=== PATIENT | male | born 1960 | race Caucasian/White ===

== ENCOUNTER 2018-12-16 12:42 | Inpatient (IN) | payer MEDICARE ==
[~2018-12-16] VITALS: Ht 167.6 cm; Wt 106.6 kg
[2018-12-16] VITALS (7 sets, daily range): BP systolic 118–174; BP diastolic 73–89; BMI 38.0
--- NOTE | ~2018-12-16 | OP ---
PATIENT NAME: CHRISTIN PARKER MEDICAL RECORD: [id number] :58 LOCATION:D.M2 D.2116 ADMISSION DATE:12/16/18 SURGEON: GOSIA BOOTHE MD DATE OF OPERATION: 12/16/2018 PROCEDURES: 1. PTCA and stent, LAD diagonal. 2. PTCA and stent, LAD. 3. Left heart catheterization. 4. Selective coronary angiography. 5. Left ventriculogram. INDICATION: Non-Q-wave myocardial infarction. PROCEDURE IN DETAIL: After informed consent was obtained with detailed description of risks and benefits as well as alternative therapies, the patient elected to proceed with angiogram and angioplasty. The right radial area was prepped and draped in normal sterile fashion. The right radial artery was cannulated via modified Seldinger technique with placement of 6-Sami sheath. All catheters were exchanged through this sheath. FINDINGS: Left ventriculogram performed in standard 30-degree GUAMAN view reveals good cardiac wall motion. Ejection fraction 60%. SELECTIVE CORONARY ANGIOGRAPHY: 1. Left main is with no significant angiographic disease. 2. Left anterior descending and diagonal are both 95% stenosed. 3. Left circumflex has moderate irregularities, but no flow-limiting stenosis. 4. Right coronary artery has 90% to 95% stenosis in the mid vessel. PTCA AND STENT OF LAD AND DIAGONAL: The LAD was addressed with a 3.0 x 22 mm [place] and the diagonal with a 2.5 x 12 mm Dir[place]. Result was 0% residual stenosis. OVERALL IMPRESSION: Successful PTCA and stent of the LAD and diagonal, going from 95% initial stenoses to 0% residual. TRANSINT:[id number] Voice Confirmation ID: [id number] DOCUMENT ID: [id number] GOSIA BOOTHE MD CC: [id number] DICTATION DATE: 12/16/18 1607 SCIENCE TECHNICIAN: 12/16/182024 ADM IN [facility] [address] [id number]
--- NOTE | ~2018-12-16 | HP ---
PATIENT: CHRISTIN PARKER MEDICAL RECORD: [id number] ACCOUNT: [id number] LOCATION:[place] : 58 ADMISSION DATE: 12/16/18 PCP: EDD CATALAN MD HISTORY AND PHYSICAL EXAMINATION DIAGNOSES: 1. Non-Q-wave myocardial infarction. 2. Coronary artery disease. 3. Hypertension. 4. Hyperlipidemia. 5. Diabetes. HISTORY OF PRESENT ILLNESS: Mr. Parker has had 2 days of on and off chest discomfort, got worse today and came to the ER. He has elevated troponin compatible with non-Q-wave myocardial infarction. He continues to have chest discomfort. PHYSICAL EXAMINATION: GENERAL APPEARANCE: Well-nourished, well-developed, appears stated age. Level of distress, comfortable. PSYCHIATRIC: Mental status, alert, normal affect. Orientation, oriented to time, place and person. EYES: Lids and conjunctiva, noninjected. No discharge, no pallor. ENT: Lips, teeth, gums, normal dentition. Oropharynx, no cyanosis, no pallor. NECK: Carotid arteries, bilateral normal upstroke, no bruits, no thrills. JUGULAR VEINS: No jugular venous pressure or distention. CERVICAL LYMPH NODES: Nontender, nonenlarged. THYROID: Not enlarged. Nontender. No nodules. LUNGS: Respiratory effort, unlabored. CHEST: Normal curvature. No thoracic deformity. No chest wall tenderness. Percussion, resonant. Auscultation, clear. No wheezes, no rales, no rhonchi. CARDIOVASCULAR: Precordial exam, nondisplaced. No heaves or pericardial thrills. Rate and rhythm, regular. Heart sounds, normal S1, normal S2. No S3, no gallop, no rub. Systolic murmur, not heard. Diastolic murmur, not heard. EXTREMITIES: No cyanosis, no edema. Peripheral pulses, full and equal in all extremities, except as noted. No bruits appreciated. ABDOMEN: Soft, nondistended. Normal aorta. No bruit. Nontender. No masses. Liver, nontender, no hepatomegaly. Spleen, nontender, no splenomegaly. MUSCULOSKELETAL: No joint tenderness. No joint swelling. No erythema. NEUROLOGICAL: Normal gait, normal strength, normal tone. SKIN: Warm and dry. OVERALL IMPRESSION: Non-Q-wave myocardial infarction with continued pain. We will proceed with coronary angiography. Further care depends upon findings of the angiography. TRANSINT:[id number] Voice Confirmation ID: [id number] DOCUMENT ID: [id number] HISTORY AND PHYSICAL [id number] CHRISTIN PARKER JEFFREY MD CC: [id number] DICTATION DATE: 12/16/18 1606 SOFTWOOD FALLER: 12/16/18 1617 [facility] [address] [id number]
--- NOTE | ~2018-12-16 | HEMODYNAMI ---
PATIENT:CHRISTIN PARKER MEDICAL RECORD: [id number] : 58 LOCATION:[place] ADMISSION DATE: 12/16/18 Generatedon:12/16/201816:09 Patient name: CHRISTIN PARKER Patient #: [id number] SSN: : 1960 Date of study: 12/16/2018 Page: Of Hemodynamic Procedure Report Patient Data Patient Demographics Procedure consent was obtained First Name: CHRISTIN Gender: Male Last Name: ELENA : 1960 Patient #: [id number] Age: 58 year(s) Race: Additional ID: [id number] Contact details [address]: [address] [place] [address] [place] State: [place] City: [place] Zip code: [address] Past Medical History Allergies Allergen Reaction Date Comments Reported Codeine 12/16/2018 Penicillins 12/16/2018 Admission Admission Data Admission Date: 12/16/2018 Admission Time: 12:42 Procedure Procedure Types Cath Procedure Diagnostic Procedure LHC LH w/Coronaries PCI Procedure Coronary Stent Coronary Stent Initial Coronary Stent Additional Procedure Description Procedure Date Procedure Date: 12/16/2018 Procedure Start Time: 15:48 Procedure End Time: 16:07 Procedure Staff Name Function Alfredito Gallo MD Performing Physician Cr Moran RT Monitor Michell Quinonez RN Nurse Shalom Selby RT Scrub Procedure Data Cath Procedure Fluoroscopy Diagnostic fluoroscopy Total fluoroscopy Time: 6.4 time: 6.4 min min Diagnostic fluoroscopy Total fluoroscopy dose: 877 dose: 877 mGy mGy Contrast Material Contrast Material Type Amount (ml) Isovue 300 132 Entry Location Entry Primary Successful Side Size Upsize Upsize Entry Closure Alonso ccessful Closure Location (Fr) 1 (Fr) 2 (Fr) Remarks Device Remarks Radial Right 6 Fr Mechanical artery Short Compression Estimated blood loss: 10 ml Diagnostic catheters Device Type Used For End Catheter Placement DIAGNOSTIC [place] 110cm 5 Procedure Fr catheter ([id number]) Procedure Medications Medication Administration Route Dosage Oxygen etCO2 Nasal cannula 2 l/min Lidocaine 2% added to field 20 Heparin Flush Bag added to field 2 bags (1000units/500ml NS) 0.9% NaCl I.V. 100 ml/hr Radial Cocktail I.A. 1 syringe (Verapamil 2mg/Nitro 400mcg/Heparin 1500units) Versed I.V. 2 mg Fentanyl I.V. 100 mcg Heparin Bolus I.V. 4000 units Integrilin (Bolus I.V. 9.5 ml 2mg/ml) Versed I.V. 2 mg Hemodynamics Rest Heart Rate: 60 (bpm) Snapshots Pre Cath Intra NCS Post Cath Vital Signs Time Heart Resp SPO2 etCO2 NIBP (mmHg) Rhythm Pain Sedation Rate (ipm) (%) (mmHg) Status Level (bpm) 15:43:40 72 13 96 35.2 136/83(116) NSR 0 (11) 10(A) , No pain 15:47:48 76 14 94 29.2 130/85(110) NSR 0 (11) 10(A) , No pain 15:51:56 82 15 95 35.2 136/79(113) NSR 0 (11) 9(A) , No pain 15:56:04 80 15 96 26.2 133/78(103) NSR 0 (11) 9(A) , No pain 16:00:14 82 16 96 32.9 135/75(106) NSR 0 (11) 9(A) , No pain 16:04:22 82 16 98 31.4 134/82(105) NSR 0 (11) 10(A) , No pain Medications Time Medication Route Dose Verified Delivered Reason Not es Effectiveness by by 15:42:06 Oxygen etCO2 2 l/min Alfredito Galarza used for Nasal Cleo Quinonez RN procedure cannula 15:42:13 Lidocaine 2% added 20ml Alfredito Glaser for local to vial Cleo Gallo MD anesthetic field 15:42:20 Heparin Flush added 2 bags Alfredito Glaser used for Bag to Cleo Gallo MD procedure (1000units/500ml field NS) 15:42:28 0.9% NaCl I.V. 100 Alfreditosanta Jamesie Per physician ml/hr Cleo Quinonez RN 15:42:42 Radial Cocktail I.A. 1 Alfredito Glaser for (Verapamil syringe Cleo Gallo MD vasodilation 2mg/Nitro 400mcg/Heparin 1500units) 15:47:54 Versed I.V. 2 mg Alfredito Galarza for sedation Cleo Quinonez RN 15:48:02 Fentanyl I.V. 100 mcg Alfredito Galarza for sedation Cleo Quinonez RN 15:52:58 Heparin Bolus I.V. 4000 Alfredito Galarza for germain ified units Cleo Quinonez RN anticoagulation with dr gallo 15:53:37 Integrilin I.V. 9.5 ml Alfredito Galarza for was marko (Bolus 2mg/ml) Cleo Quinonez RN antiplatelet 0.5 ml therapy of vial 15:58:18 Versed I.V. 2 mg Alfredito Galarza for sedation Cleo Quinonez RN Procedure Log Time Note 15:15:43 Informed consent obtained and on chart 15:16:10 Diagnostic Cath Status : Emergency 15:18:44 Michell Quinonez RN sent for patient. Start room use. 15:18:46 Time tracking: Call back (After hours or weekends) 15:19:04 Plan of Care:Hemodynamics will remain stable., Cardiac rhythm will remain stable., Comfort level will be maintained., Respiratory function will remain adequate., Patient/ family verbilizes understanding of procedure., Procedure tolerated without complication., Recovers from procedure without complications.. 15:28:14 Patient received from ED to CCL 1 Alert and oriented. Tansferred to table in Supine position. 15:28:15 Warm blankets applied, and margi hugger turned on for patient comfort. 15:28:16 Correct patient and procedure confirmed by team. 15:28:16 ECG and BP/O2 sat monitors applied to patient. 15:28:17 Pre-procedure instructions explained to patient. 15:28:18 Pre-op teaching completed and patient verbalized understanding. 15:42:06 Oxygen 2 l/min etCO2 Nasal cannula was administered by Michell Quinonez RN; used for procedure; 15:42:13 Lidocaine 2% 20ml vial added to field was administered by Alfredito Gallo MD; for local anesthetic; 15:42:20 Heparin Flush Bag (1000units/500ml NS) 2 bags added to field was administered by Alfredito Gallo MD; used for procedure; 15:42:28 0.9% NaCl 100 ml/hr I.V. was administered by Michell Quinonez RN; Per physician; 15:42:31 Vital chart was started 15:42:42 Radial Cocktail (Verapamil 2mg/Nitro 400mcg/Heparin 1500units) 1 syringe I.A. was administered by Alfredito Gallo MD; for vasodilation; 15:43:39 Baseline sample Acquired. 15:43:44 Rhythm: sinus rhythm 15:43:47 Full Disclosure recording started 15:43:56 H&P Date Dictated: 12/16/2018 ER History on chart.. 15:44:00 Family in waiting room. 15:44:17 Patient NPO since Breakfast. 15:44:24 Patient allergic to Codeine 15:44:30 Patient allergic to Penicillins 15:44:43 Is patient on blood thinner?No 15:45:00 PRE LOADED WITH 600 IN THE ER 15:45:06 Patient diabetic? Yes. 15:45:08 If diabetic: On Metformin? Yes 15:45:12 If on Metformin: Last Dose? 12/16/2018 15:45:35 TOLD TO HOLD NEXT TWO DAYS 15:45:46 ----Pre-sedation anethsthesia assessment.---- 15:45:49 Previous problem with sedation/anesthesia? No ? 15:45:52 Snore? Yes 15:45:53 Sleep apnea? No 15:45:55 Deviated septum? No 15:45:56 Opens mouth fully? Yes 15:45:57 Sticks out tongue? Yes 15:46:01 Airway obstruction? No ? 15:46:04 Dentures? No ? 15:46:19 Pre procedure: right dorsailis pedis pulse 2+ Normal; easily identifiable; not easily obliterated 15:46:26 Patient pain scale 3/10 ?. 15:46:40 IV patent on arrival in left antecubital with 0.9% NaCl at [facility]. 15:47:00 Right Radial & Right Groin area was prepped with chlora-prep and draped in sterile fashion 15:47:02 Alarms reviewed by R. N. 15:47:02 Sharps counted by scrub and verified by R.N. 15:47:07 Physician arrived 15:47:07 --------ALL STOP TIME OUT------ 15:47:08 Final Timeout: patient, procedure, and site verified with staff and physician. All members of the team are in agreement. 15:47:11 Right Radial & Right Groin site verified by team. 15:47:17 Maximum allowable Isovue 300 dose 300ml. Physician notified. (300ml for normal creatinines. For patients with creatinine of 1.7 or higher multiply weight(kg) x 5 divided by creatinine.) 15:47:22 Fire Safety Assessment: A--An alcohol-based skin anteseptic being used preoperatively., C--Open oxygen or nitrous oxide is being used., D--An ESU, laser, or fiber-optic light is being used. 15:47:27 Physical assessment completed. ASA score P 2 - A patient with mild systemic disease as per Alfredito Gallo MD. 15:47:33 Sedation plan: IV Moderate Sedation Medication:Versed, Fentanyl 15:47:39 Use device set Radial Dx or PCI 15:47:40 ACIST Syringe (66608) opened to sterile field. 15:47:41 Medline Cath Pack ([id number]) opened to sterile field. 15:47:42 Bag Decanter (2002) opened to sterile field. 15:47:42 DIAGNOSTIC WIRE .035 260cm J wire (234541) opened to sterile field. 15:47:43 ACIST Hand Control (74575) opened to sterile field. 15:47:44 ACIST Manifold (42089) opened to sterile field. 15:47:45 Tegaderm 4 x 4 (1626W) opened to sterile field. 15:47:48 MBrace Wrist Support ([id number]) opened to sterile field. 15:47:54 Versed 2 mg I.V. was administered by Michell Quinonez RN; for sedation; 15:48:02 Fentanyl 100 mcg I.V. was administered by Michell Quinonez RN; for sedation; 15:48:05 TR BAND Large (MUT69NAW) opened to sterile field. 15:48:08 SHEATH 6FR Slender (01-9810) opened to sterile field. 15:48:15 Procedure started. 15:48:21 Local anesthetic to right radial artery with Lidocaine 2% by Alfredito Gallo MD.INITIAL ACCESS ONLY 15:48:37 A 6 Fr Short sheath was inserted into the Right Radial artery 15:48:47 Zero performed for pressure channel P1 15:48:54 Zero performed for pressure channel P1 15:49:04 A DIAGNOSTIC [place] 110cm 5 Fr catheter (555637) was advanced over the wire and used for Procedure. 15:49:22 LV gram done using GUAMAN 15:49:28 EF : 55 % 15:49:34 RCA angiography performed. 15:49:50 Catheter removed. 15:50:05 CHOICE PT Extra Support 182cm wire ([id number]) opened to sterile field. 15:50:06 INFLATOR Merit BasixCompak (DP1648) opened to sterile field. 15:50:54 GUIDE 6FR XBLAD 3.5 catheter (90968452) opened to sterile field. 15:51:31 LCA angiography performed. 15:52:22 Proceeding to intervention. 15:52:58 Heparin Bolus 4000 units I.V. was administered by Michell Quinonez RN; for anticoagulation; verified with dr gallo 15:53:06 CHOICE wire advanced. 15:53:37 Integrilin (Bolus 2mg/ml) 9.5 ml I.V. was administered by Michell Quinonez RN; for antiplatelet therapy; wasted 0.5 ml of vial 15:54:03 Wire advanced across lesion. 15:55:25 CHOICE PT Extra Support 182cm wire ([id number]) opened to sterile field. 15:55:40 CHOICE wire advanced. 15:55:56 FIRST WIRE IN DIAG SECOND IN LAD 15:57:18 Place stent Inflation Number: 1 A MAVERICK RX 2.5 x 12 stent ([id number]) was prepped and advanced across the 1st Diag. The stent was deployed at 11 KATELYN for 0:10 (min:sec). 15:58:18 Versed 2 mg I.V. was administered by Michell Quinonez RN; for sedation; 15:58:39 Stent catheter was removed intact over wire. 15:59:45 WIRE REMOVED FROM DIAG 16:00:33 Place stent Inflation Number: 1 A MAVERICK RX 3.0 x 22 stent ([id number]) was prepped and advanced across the Prox LAD. The stent was deployed at 17 KATELYN for 0:10 (min:sec). 16:00:42 Balloon removed over the wire. 16:00:44 Wire removed. 16:00:45 Guide catheter removed. 16:02:31 Procedure ended.(Physican Out) 16:03:39 Fluoroscopy time 06.40 minutes. 16:03:44 Fluoroscopy dose: 877 mGy 16:03:44 Flurop Dose total: 877 16:03:53 Contrast amount:Isovue 300 132ml. 16:03:55 Sharps counted by scrub and verified by R.N. 16:04:07 Sheath removed intact; hemostasis achieved with Mechanical Compression to the Right Radial artery. 16:04:11 TR band inflated with 9cc of air. 16:04:16 Insertion/operative site no bleeding no hematoma. 16:04:29 Post right radial artery:stable 16:04:41 Post-procedure physical assessment completed. ASA score P 2 - A patient with mild systemic disease as per Alfredito Gallo MD. 16:04:47 Post procedure rhythm: sinus rhythm 16:04:54 Estimated blood loss: 10 ml 16:04:56 Post procedure instruction explained to patient.Patient verbalizes understanding. 16:05:32 Patient needs reinforcement of post procedure teaching. 16:06:06 Procedure type changed to Cath procedure, Diagnostic procedure, LHC, LHC w/Coronaries, PCI procedure, Coronary Stent, Coronary Stent Initial, Coronary Stent Additional 16:06:13 Procedure and supply charges have been captured, reviewed, submitted and are correct. 16:07:34 Vital chart was stopped 16:07:36 See physician's report for complete and final results. 16:07:39 Report given to PCU. 16:07:45 Patient transfered to PCU with Bed. 16:07:47 Procedure ended. 16:07:47 Full Disclosure recording stopped 16:07:57 End room use (Document Last) Intervention Summary Intervention Notes Time ActionType Lesion and Equipment Used Action# Pressure Duration Attributes 15:57:18 Place stent 1st Diag MAVERICK RX 2.5 x 1 11 00:10 12 stent ([id number]) 16:00:33 Place stent Prox LAD MAVERICK RX 3.0 x 1 17 00:10 22 stent ([id number]) Device Usage Item Name Manufacture Quantity Catalog Number Hospital Part Current M inimal Lot# / Charge Number Stock Stock Serial# Code ACIST Syringe Acist 1 79405 137277 669758 704920 2 0 (82717) Equ[employer] Inc Medline Cath Medline 1 [id number] 545389 14889 304612 5 Pack ([id number]) Bag Decanter Microtek 1 494723 11891 967902 5 () Medical Inc. DIAGNOSTIC St [place]isha 1 647305 529994 029952 558563 3 0 WIRE .035 260cm J wire (311414) ACIST Hand Acist 1 44416 144454 734988 080438 5 Control Medical (93519) Systems Inc ACIST Manifold Acist 1 33761 305311 905462 982043 5 (75946) Medical Systems Inc Tegaderm 4 x 4 3M 1 1626W 624193 297196 018793 5 (1626W) MBrace Wrist Advanced 1 140-0250-00 546125 93078 988474 5 Support Vascular ([id number]) Dynamics TR BAND Large Terumo 1 [id number] 976320 466290 746393 4 0 ([id number]) SHEATH 6FR Terumo 1 [id number] 094131 429197 746032 5 Slender (80-1060) DIAGNOSTIC Terumo 1 40-4565 192932 474612 068913 5 [place] 110cm 5 Fr catheter (724720) CHOICE PT [place] 2 [id number] 356529 850169 549245 5 Extra Support Scientific 182cm wire ([id number]) INFLATOR Merit Merit 1 [id number] 414744 917091 596576 1 5 NanostellargaYidio (ST3617) GUIDE 6FR Cardinal 1 [id number] 710936 257194 864068 1 0 XBLAD 3.5 Health catheter (70134596) MAVERICK RX 2.5 x Medtronic 1 [id number] 082969 5780333 178201 5 [id number] 12 stent ([id number]) MAVERICK RX 3.0 x Medtronic 1 [id number] 879676 6991383 645080 5 [id number] 22 stent ([id number]) Signature Audit [place] Stage Time Signature Unsigned Intra-Procedure 12/16/2018 Cr Moran 4:09:32 PM RT(R) (CV) Signatures Monitor : Cr Moran RT Signature : Date : Time : [facility] [address] [place] [address]
--- NOTE | ~2018-12-16 | HEMODYNAMI ---
PATIENT:CHRISTIN PARKER MEDICAL RECORD: [id number] : 58 [id number] ADMISSION DATE: 12/16/18 Generatedon:12/17/201811:35 Patient name: CHRISTIN PARKER Patient #: [id number] SSN: : 1960 Date of study: 12/17/2018 Page: Of Hemodynamic Procedure Report Patient Data Patient Demographics Procedure consent was obtained First Name: CHRISTIN Gender: Male Last Name: ELENA : 1960 Patient #: [id number] Age: 58 year(s) Race: Additional ID: [id number] Contact details [address]: [address] [place] [address] [place] State: [place] City: [place] Zip code: [address] Past Medical History Allergies Allergen Reaction Date Comments Reported Codeine 12/16/2018 Penicillins 12/16/2018 Admission Admission Data Admission Date: 12/16/2018 Admission Time: 16:30 Room #: .[facility] Height (in.): 66 BSA: 2.14 (m2) Height (cm.): 167.64 BMI: 38.01 (kg/m2) Weight (lbs.): 235.48 Weight (kg.): 106.81 Lab Results Lab Result Date: 12/17/2018 Lab Result Time: 0:00 Biochemistry Name Units Result Min Max BUN mg/dl 13 --(--*-)-- 7 18 Creatinine mg/dl 1.1 --(--*-)-- 0.6 1.3 CBC Name Units Result Min Max Hemoglobin g/dl 15.3 --(-*--)-- 13.5 17.5 Procedure Procedure Types Cath Procedure PCI Procedure Coronary Stent Coronary Stent Initial Procedure Description Procedure Date Procedure Date: 12/17/2018 Procedure Start Time: 11:25 Procedure End Time: 11:32 Procedure Staff Name Function Alfredito Gallo MD Performing Physician Jared Gill RT Drum Stenciler Bambi Carlson RT Monitor Regino Fournier RN Nurse Eugenie Correa RT Scrub Sri Brown RN Nurse Procedure Data Cath Procedure Fluoroscopy Diagnostic fluoroscopy Total fluoroscopy Time: 1.8 time: 1.8 min min Diagnostic fluoroscopy Total fluoroscopy dose: 245 dose: 245 mGy mGy Contrast Material Contrast Material Type Amount (ml) Isovue 300 26 Entry Location Entry Primary Successful Side Size Upsize Upsize Entry Closure Succes sful Closure Location (Fr) 1 (Fr) 2 (Fr) Remarks Device Remarks Femoral Right 6 Fr Exoseal artery Short Estimated blood loss: 5 ml Procedure Complications No complications Procedure Medications Medication Administration Route Dosage 0.9% NaCl I.V. 100 ml/hr Oxygen etCO2 Nasal cannula 2 l/min Lidocaine 2% added to field 20 Heparin Flush Bag added to field 2 bags (1000units/500ml NS) Versed I.V. 2 mg Fentanyl I.V. 50 mcg Versed I.V. 2 mg Fentanyl I.V. 50 mcg Heparin Bolus I.V. 4000 units Hemodynamics Rest BSA: 2.14 (m2) O2 Consumption: Estimated: 260.75 (ml/min) O2 Consumption indexed : Estimated:121.85 (ml/min/m) Heart Rate: 81 (bpm) Snapshots Pre Cath Intra NCS Post Cath Vital Signs Time Heart Resp SPO2 etCO2 NIBP (mmHg) Rhythm Pain Sedation Rate (ipm) (%) (mmHg) Status Level (bpm) 10:54:55 79 21 100 17.9 163/93(128) NSR 0 (11) 10(A) , No pain 10:59:17 80 19 97 32.9 147/86(114) NSR 0 (11) 10(A) , No pain 11:03:33 78 18 98 8.2 152/90(119) NSR 0 (11) 10(A) , No pain 11:07:55 77 15 97 29.9 137/87(108) NSR 0 (11) 10(A) , No pain 11:12:15 76 15 97 26.9 144/81(116) NSR 0 (11) 10(A) , No pain 11:16:33 78 19 98 29.9 142/87(112) NSR 0 (11) 10(A) , No pain 11:20:51 75 16 97 28.5 139/84(111) NSR 0 (11) 10(A) , No pain 11:25:10 66 17 98 23.9 141/83(102) NSR 0 (11) 10(A) , No pain 11:29:28 74 14 98 29.9 141/84(106) NSR 0 (11) 10(A) , No pain Medications Time Medication Route Dose Verified Delivered Reason Notes E ffectiveness by by 10:53:53 0.9% NaCl I.V. 100 Alfredito Sri used for ml/hr Cleo Brown tailings worker 10:54:02 Oxygen etCO2 2 Alfredito Sri used for Nasal l/min Cleo Brown procedure cannula RN 10:54:09 Lidocaine 2% added 20ml Alfredito Alfredito for local to vial Cleo Gallo MD anesthetic field 10:54:13 Heparin Flush added 2 Alfredito Alfredito used for Bag to bags Cleo Gallo MD procedure (1000units/500ml field NS) 11:25:58 Versed I.V. 2 mg Alfredito Sri for Cleo Brown sedation RN 11:26:03 Fentanyl I.V. 50 Alfredito Sri for mcg Cleo Brown sedation RN 11:27:15 Heparin Bolus I.V. 4000 Alfredito Sri for verified units Cleo Brown sedation with Dr. VU Gallo 11:29:10 Versed I.V. 2 mg Alfredito Sri for Cleo Brown sedation RN 11:29:15 Fentanyl I.V. 50 Alfredito Sri for mcg Cleo Brown sedation safety companion Log Time Note 10:35:50 Patient Height : 66 inches 10:35:55 Patient Weight : 235.48 lbs 10:37:45 Lab Result : Hemoglobin 15.3 g/dl 10:37:45 Lab Result : Creatinine 1.1 mg/dl 10:37:45 Lab Result : BUN 13 mg/dl 10:38:40 Diagnostic Cath status Elective 10:38:42 Jared Gill RT(R) sent for patient. Start room use. 10:38:43 Time tracking: Regular hours (M-F 7:00 - 5:00) 10:38:49 Plan of Care:Hemodynamics will remain stable., Cardiac rhythm will remain stable., Comfort level will be maintained., Respiratory function will remain adequate., Patient/ family verbilizes understanding of procedure., Procedure tolerated without complication., Recovers from procedure without complications.. 10:38:55 Patient received from Med II to CCL 2 Alert and oriented. Tansferred to table in Supine position. 10:38:57 Warm blankets applied, and margi hugger turned on for patient comfort. 10:39:22 H&P Date Dictated: 12/16/2018 Within 30 days and on chart.. 10:53:39 Vital chart was started 10:53:53 0.9% NaCl 100 ml/hr I.V. was administered by Sri Brown RN; used for procedure; 10:54:02 Oxygen 2 l/min etCO2 Nasal cannula was administered by Sri Brown RN ; used for procedure; 10:54:09 Lidocaine 2% 20ml vial added to field was administered by Alfredito Gallo MD; for local anesthetic; 10:54:13 Heparin Flush Bag (1000units/500ml NS) 2 bags added to field was administered by Alfredito Gallo MD; used for procedure; 10:59:19 Correct patient and procedure confirmed by team. 10:59:22 Signed procedure consent form obtained from patient. 10:59:23 Baseline sample Acquired. 10:59:26 Rhythm: sinus rhythm 10:59:28 Full Disclosure recording started 10:59:30 Pre-procedure instructions explained to patient. 10:59:30 Pre-op teaching completed and patient verbalized understanding. 10:59:31 Family in patients room. 10:59:38 Patient NPO since Midnight. 10:59:39 Is the patient allergic to Iodine/contrast media? No. 10:59:40 Was the patient premedicated? No 10:59:41 Is patient on blood thinner?Yes 10:59:44 ACC The patient was administered the following blood thiners within the last 24 hours: ACCPlavix 11:00:14 Patient diabetic? Yes. 11:00:15 If diabetic: On Metformin? Yes 11:00:23 If on Metformin: Last Dose? 12/16/2018 11:00:32 Previous problem with sedation/anesthesia? No ? 11:00:36 Snore? Yes 11:00:37 Sleep apnea? No 11:00:38 Deviated septum? No 11:00:39 Opens mouth fully? Yes 11:00:40 Sticks out tongue? Yes 11:00:45 Airway obstruction? No ? 11:00:47 Dentures? No ? 11:00:57 Pre procedure: right dorsailis pedis pulse 2+ Normal; easily identifiable; not easily obliterated 11:00:59 Pre procedure: left dorsailis pedis pulse 2+ Normal; easily identifiable; not easily obliterated 11:01:02 Patient pain scale 0/10 ?. 11:01:06 Lab results completed and on chart. 11:01:10 Alarms reviewed by Dick Jay 11::11 Sharps counted by scrub and verified by R.N. 11:04:43 - 11:04:44 Physician paged 11:24:08 Physician arrived 11:24:08 --------ALL STOP TIME OUT------ 11:24:12 Final Timeout: patient, procedure, and site verified with staff and physician. All members of the team are in agreement. 11:24:14 Right groin site verified by team. 11:24:18 Maximum allowable Isovue 300 dose 300ml. Physician notified. (300ml for normal creatinines. For patients with creatinine of 1.7 or higher multiply weight(kg) x 5 divided by creatinine.) 11:24:22 Fire Safety Assessment: A--An alcohol-based skin anteseptic being used preoperatively., C--Open oxygen or nitrous oxide is being used., D--An ESU, laser, or fiber-optic light is being used. 11:24:24 Physical assessment completed. ASA score P 2 - A patient with mild systemic disease as per Alfredito Gallo MD. 11:24:27 Sedation plan: IV Moderate Sedation Medication:Versed, Fentanyl 11:24:40 Procedure started. 11:25:04 Local anesthetic to right femoral artery with Lidocaine 2% by Alfredito Gallo MD.INITIAL ACCESS ONLY 11:25:19 A 6 Fr Short sheath was inserted into the Right Femoral artery 11::40 Use device set CATH PACK 11::42 ACIST Syringe (62816) opened to sterile field. 11:25:42 ACIST Hand Control (79774) opened to sterile field. 11:25:43 ACIST Manifold (96287) opened to sterile field. 11:25:43 Medline Cath Pack ([id number]) opened to sterile field. 11:25:43 Bag Decanter (2002S) opened to sterile field. 11:25:44 DIAGNOSTIC WIRE .035 260cm J wire (291492) opened to sterile field. 11:25:50 SHEATH 6FR Daggett (EAO385) opened to sterile field. 11::58 Versed 2 mg I.V. was administered by Sri Brown RN; for sedation; 11:26:00 GUIDE 6FR AR 2.0 catheter ([id number]) opened to sterile field. 11:26:03 Fentanyl 50 mcg I.V. was administered by Sri Brown RN; for sedation ; 11:26:49 6 Fr ar 2 guide catheter was inserted over the wire 11:27:15 Heparin Bolus 4000 units I.V. was administered by Sri Brown RN; for sedation; verified with Dr. Gallo 11:27:32 choice pt wire advanced. 11:27:41 Wire advanced across lesion. 11:29:10 Versed 2 mg I.V. was administered by Sri Brown RN; for sedation; 11:29:15 Fentanyl 50 mcg I.V. was administered by Sri Brown RN; for sedation ; 11:29:19 Place stent Inflation Number: 1 A MAVERICK RX 3.0 x 38 stent ([id number]) was prepped and advanced across the Mid RCA. The stent was deployed at 12 KATELYN for 0:10 (min:sec). 11:29:50 Stent catheter was removed intact over wire. 11:29:50 Wire removed. 11:29:52 Guide catheter removed. 11:29:59 EXOSEAL 6Fr (EX600) opened to sterile field. 11:30:08 Sheath removed intact; hemostasis achieved with Exoseal to the Right Femoral artery. 11:30:10 Procedure ended.(Physican Out) :31:15 Fluoroscopy time 01.80 minutes. 11:31:19 Fluoroscopy dose: 245 mGy 11:31:19 Flurop Dose total: 245 11:31:23 Contrast amount:Isovue 300 26ml. 11:31:24 Sharps counted by scrub and verified by R.N. 11:31:28 Insertion/operative site no bleeding no hematoma. 11:31:39 Post-op/insertion site Right Femoral artery dressed using a 4 x 4 and Tegaderm. 11:31:43 Post Procedure Pulses reassessed and unchanged 11:31:46 Post procedure rhythm: unchanged. 11:31:48 Estimated blood loss: 5 ml 11:31:53 Post procedure instruction explained to patient.Patient verbalizes understanding. 11:31:53 Patient needs reinforcement of post procedure teaching. 11:31:59 Procedure type changed to Cath procedure, PCI procedure, Coronary Stent , Coronary Stent Initial 11:32:00 Procedure and supply charges have been captured, reviewed, submitted an d are correct. 11:32:06 Procedure Complication : No complications 11:32:11 Vital chart was stopped 11:32:12 See physician's report for complete and final results. 11:32:15 Report given to Pre/Post Procedure Room. 11:32:18 Patient transfered to Pre/Post Procedure Room with Stretcher. 11:32:20 Procedure ended. 11:32:20 Full Disclosure recording stopped 11:32:28 ACC-PCI Only Patient was given prescriptions, or instructed by Alfredito Gallo MD to start/continue the following medications upon discharge: Plavix 11:32:30 End room use (Document Last) Intervention Summary Intervention Notes Time ActionType Lesion and Equipment Used Action# Pressure Duration Attributes 11:29:19 Place stent Mid RCA MAVERICK RX 3.0 x 1 12 00:10 38 stent ([id number]) Device Usage Item Name Manufacture Quantity Catalog [facility] Lot# / Number Charge Number Stock Stock Serial# Code ACIST Syringe Acist 1 47684 464360 764640 181875 20 (22797) Medical Systems Inc ACIST Hand Acist 1 49298 210732 699862 807665 5 Control Medical (85269) Systems Inc ACIST Manifold Acist 1 75924 692911 493097 155493 5 (47229) Medical Systems Inc Medline Cath Medline 1 [id number] 006908 78421 295360 5 Pack ([id number]) Bag Decanter Microtek 1 642376 40520 184987 5 () Medical Inc. DIAGNOSTIC St Misha 1 020357 869292 807804 030754 30 WIRE .035 260cm J wire (204524) SHEATH 6FR Terumo 1 PJM233 579504 985882 814767 40 Daggett (SKK333) GUIDE 6FR AR Medtronic 1 [id number] 867830 74514 274803 1 2.0 catheter ([id number]) MAVERICK RX 3.0 x Medtronic 1 [id number] 118357 9526767 675305 5 [id number] 38 stent ([id number]) EXOSEAL 6Fr Cardinal 1 EX600 199919 212209 381179 10 (EX600) Health Signature Audit [place] Stage Time Signature Unsigned Intra-Procedure 12/17/2018 Bambi Carlson 11:35:26 AM RT(R) Signatures Monitor : Bambi Carlson RT Signature : Date : Time : [place] [address] [place] [address]
--- NOTE | ~2018-12-16 | OP ---
PATIENT NAME: CHRISTIN PARKER MEDICAL RECORD: [id number] :58 LOCATION:D.M2 D.2116 ADMISSION DATE:12/16/18 SURGEON: GOSIA BOOTHE MD DATE OF OPERATION: 12/17/2018 PROCEDURES: 1. PTCA stent RCA. 2. Selective coronary angiography. INDICATION: Angina and coronary artery disease. PROCEDURE IN DETAIL: After informed consent was obtained and after a detailed description of the risks, benefits as well as alternative therapies, the patient elected to proceed with angiogram and angioplasty. The right femoral area was prepped and draped in normal sterile fashion. Right femoral artery was cannulated via modified Seldinger technique with placement of 6-Kiswahili sheath. All catheters exchanged through this sheath. FINDINGS: The right coronary has 90+ percent stenosis in the mid vessel, this was addressed with a 3.0 x 38 mm Oceana. Result was 0% residual stenosis. OVERALL IMPRESSION: Successful percutaneous transluminal coronary angioplasty stent of the right coronary artery going from 90+ percent initial stenosis to 0% residual. TRANSINT:[id number] Voice Confirmation ID: [id number] DOCUMENT ID: [id number] GOSIA BOOTHE MD CC: [id number] DICTATION DATE: 12/17/18 1201 DRY COLOR TESTER: 12/17/18 1235 ADM IN [facility] [address] [place] [address]
--- NOTE | ~2018-12-16 | DS ---
PATIENT:CHRISTIN PARKER :58 MEDICAL RECORD: [id number] DISCHARGE SUMMARY ADMISSION DATE: 12/16/18 DISCHARGE DATE: 12/17/18 DATE OF SERVICE: 12/18/2018 DISCHARGE DIAGNOSES: 1. Acute anterior myocardial infarction. 2. Coronary artery disease. 3. PTCA stent left anterior descending and right coronary artery this admission. 4. Hypertension. 5. Hyperlipidemia. HOSPITAL COURSE: Mr. Parker presents with non-Q-wave myocardial infarction, found to have critical disease of the LAD and RCA, underwent successful PTCA stent of both territories, was discharged home with the addition of Plavix to his medical regimen as he is already on aspirin, beta-she and statin. We will follow up with [facility] in 1 month. TRANSINT:[id number] Voice Confirmation ID: [id number] DOCUMENT ID: [id number] GOSIA BOOTHE MD CC: [id number] DICTATION DATE: 12/17/18 1200 BEHAVIORAL HEALTH CLINICIAN: 12/18/18 0128 DIS IN 12/17/18 [place] [id number] [place] [id number]
[2018-12-16] MEDS ORDERED: METFORMIN HCL500 M1 (12:48)
[2018-12-16] MEDS ORDERED: OMEPRAZOLE40 MG (12:48)
[2018-12-16] MEDS ORDERED: COZAAR100 MG PO (12:48)
[2018-12-16] MEDS ORDERED: METOPROLOL TART50 MG PO (12:49)
[2018-12-16] MEDS ORDERED: PRAVACHOL80 MG PO (12:49)
[2018-12-16] MEDS ORDERED: GLUCOTROL 5 MG T5 MG PO (12:50)
[2018-12-16] MEDS ORDERED: NORVASC10 MG PO (12:50)
[2018-12-16 13:28] LABS: BASOPHILS 0.4 % (0-2); HEMATOCRIT 43.6 % (42.0-54.0); HEMOGLOBIN 15.3 g/dL (13.5-17.5); IMMATURE GRANULOCYTES 0.2 % (0-5); LYMPHOCYTES 20.5 % (15-50); MCH 27.7 pg (26.0-34.0); MCHC 35.1 g/dL (31.0-37.0); MCV 78.8 fL (80.0-100.0); MEAN PLATELET VOLUME 9.9 fL (7.4-10.4); MONOCYTES 10.9 % (2-11); PLATELET COUNT 190 10x3/uL (130-400); RBC 5.53 10x6/uL (4.20-6.10); WBC 5.6 10x3/uL (4.8-10.8)
[2018-12-16 13:29] LABS: APTT 28.5 SECONDS (22.8-39.4); INR 1.07 (0.85-1.17); PROTIME 13.4 SECONDS (11.6-15.0)
[2018-12-16 13:30] LABS: ALBUMIN 4.4 g/dL (3.4-5.0); ALKALINE PHOSPHATASE 72 U/L (46-116); ALT (SGPT) 39 U/L (10-68); BILIRUBIN - TOTAL 0.66 mg/dL (0.2-1.3); CALC OSMOLALITY 282 mosm/kg (275-300); CALCIUM 8.9 mg/dL (8.5-10.1); CARBON DIOXIDE 22.7 mmol/L (21.0-32.0); CHLORIDE - SERUM 103 mmol/L (98-107); CREATININE - SERUM 1.1 mg/dL (0.6-1.3); GLUCOSE 216 mg/dL (74-106); POTASSIUM - SERUM 4.1 mmol/L (3.5-5.1); PROTEIN - SERUM 7.5 g/dL (6.4-8.2); SODIUM 138 mmol/L (136-145); UREA NITROGEN 13 mg/dL (7-18); eGFR NON AFRICAN AMERICAN 73 mL/min (90-120)
[2018-12-16 13:45] LABS: CKMB 2.9 U/L (0.0-3.6); CREATINE KINASE 116 UL (21-232); MAGNESIUM - SERUM 1.6 mg/dL (1.8-2.4)
[2018-12-16 13:50] LABS: TROPONIN-I 0.154 ng/mL (0.000-0.060)
--- NOTE | 2018-12-16 13:50 | NUR ---
RCVD TC FROM LAB: ELEVATED TROPONIN 0.154. DR CARTER NOTIFIED
--- NOTE | 2018-12-16 14:33 | NUR ---
RCVD TC FROM LAB: LACTATE 2.4
--- NOTE | 2018-12-16 14:42 | NUR ---
pt c/o left cp. nitor admin per orders. vss
--- NOTE | 2018-12-16 14:50 | NUR ---
PAIN RESOLVED. VSS
--- NOTE | 2018-12-16 15:05 | NUR ---
CONSENT FOR CARDIAC CATH AND BLOOD CONSENT EXPL TO PT AND CONSENTS SIGNED AND WITNESSED. PT VERB UNDER
--- NOTE | 2018-12-16 15:22 | NUR ---
DIESEL MECHANIC HERE. REPORT TO DIESEL MECHANIC CREW. IV INFUSING LAC WITHOUT PBMS
--- NOTE | 2018-12-16 16:44 | NUR ---
TRANSFER FROM PLATER APPRENTICE BY BED. VS WNL. RIGHT WRIST STABEL WITH TR BAND INTACT. WILL MONITOR.
--- NOTE | 2018-12-16 19:47 | NUR ---
RESUMING PATIENT CARE. PATIENT IS ALERT AND ORIENTED. RESTING COMFORTABLY IN BED. RESPIRATIONS ARE EVEN AND UNLABORED. NO S/S OF DISTRESS. NO C/O PAIN. DENIES NEEDS. FAMILY AT BED. CALL LIGHT WITHIN REACH. WILL CPOC.
--- NOTE | 2018-12-17 01:41 | NUR ---
PATIENT RESTING COMOFRTABLY IN BED. RESPIRATIONS ARE EVEN AND UNLABORED. NO S/S OF DISTRESS. NO C/O PAIN. CALL LIGHT WITHIN REACH. WILL CPOC.
[2018-12-17 04:00] VITALS: BP 141/79
[2018-12-17 08:15] VITALS: BP 132/72
--- NOTE | 2018-12-17 10:40 | NUR ---
PRE-OPS GIVEN. LEAVING FOR SPECIALIZED LANGUAGE INSTRUCTOR BY BED.
[2018-12-17] MEDS ORDERED: PLAVIX75 MG PO (11:41)
[2018-12-17] MEDS ORDERED: BAYER CHEWABLE81 MG PO (11:41)
--- NOTE | 2018-12-17 11:58 | NUR ---
DRESSING CDI TO RIGHT GROIN, AREA IS SOFT AND NONTENDER. PEDAL PULSES PALPABLE. VSS, RESP WITH EASE ON O2 AT 2 LPM VIA NC. PT IS AWAKE AND REMIGIO SIPS OF WATER WITH NO NAUSEA. MULTIPLE FAMILY AT BEDSIDE. CALL LIGHT IN REACH.
--- NOTE | 2018-12-17 12:15 | NUR ---
PT IS ALERT, DENIES ANY C/O. DRESSING IS CDI, AREA IS SOFT AND NONTENDER, PEDAL PULSES PALPABLE. HOB IS FLAT. NSR, DENIES ANY C/O CHEST PAIN. RATE IS 73, BP IS 113/78.
[2018-12-17 12:21] VITALS: Ht 167.6 cm; Wt 106.6 kg
--- NOTE | 2018-12-17 12:40 | NUR ---
PT SLEEPING INTERMITTENTLY, DRESSING TO RIGHT GROIN IS CDI, AREA IS SOFT AND NONTENDER. PEDAL PULSES PALPABLE. HOB IS FLAT. NSR, DENIES ANY C/O CHEST PAIN. FAMILY AT BEDSIDE. CALL LIGHT IN REACH.
--- NOTE | 2018-12-17 13:17 | NUR ---
DR BOOTHE HAS ROUNDED ON PT. FAMILY AT BEDSIDE.
--- NOTE | 2018-12-17 13:51 | NUR ---
PT VISITING WITH FRIENDS IN THE ROOM, DENIES ANY C/O CHEST PAIN. DRESSING IS CDI TO RIGHT GROIN, AREA IS SOFT AND NONTENDER. PEDAL PULSES PALPABLE. HOB IS FLAT, RESP WITH EASE. NSR, RATE 74, BP IS 139/86. CALL LIGHT IN REACH.
--- NOTE | 2018-12-17 14:34 | NUR ---
HOB ELEVATED 30 DEGREES, SANDWICH AND PO FLUIDS AT BEDSIDE. DRESSING CDI TO RIGHT GROIN, AREA IS SOFT AND NONTENDER. PEDAL PULSES PALPABLE. VSS, PT IS ALERT AND DENIES ANY C/O.
--- NOTE | 2018-12-17 14:46 | NUR ---
HOB FULLY ELEVATED, DRESSING TO RIGHT GROIN IS CDI, AREA IS SOFT AND NONTENDER. PEDAL PULSES PALPABLE. VSS,.PT DENIES ANY C/O. CALL LIGHT IN REACH. REMIGIO SANDWICH AND PO FLUIDS WITH NO C/O NAUSEA.
--- NOTE | 2018-12-17 15:03 | NUR ---
DRESSING REMAINS CDI, AREA IS SOFT AND NONTENDER. PEDAL PULSES PALPABLE. PT HAS REMIGIO SANDWICH WITH NO NAUSEA. DC INSTRUCTIONS REVIEWED WITH PT AND WHO VERBALIZE UNDERSTANDING. PLAVIX PRESCRIPTION TO PT, PT AND VERBALIZE UNDERSTANDING TO START THIS MEDICATION TOMORROW.
--- NOTE | 2018-12-17 15:17 | NUR ---
IV DC'D WITH CATH INTACT. PT IS DRESSING FOR DC TO HOME WITH ASSIST. DRESSING REMAINS CDI TO RIGHT GROIN, AREA IS SOFT AND NONTENDER. PEDAL PULSES PALPABLE. PT DENIES ANY C/O.
--- NOTE | 2018-12-17 15:36 | NUR ---
1530 PT HAS DRESSED FOR DC TO HOME, HAS AMBULATED TO THE BATHROOM AND VOIDED QS. IS ALERT AND DENIES ANY C/O. PT ESCORTED TO PRIVATE AUTO VIA WC BY NURSE WITH DRIVING HIM HOME. PT HAS ALL PERSONAL BELONGINGS AND DC INSTRUCTIONS AT TIME OF DISCHARGE.
== END 2018-12-17 15:36 | disposition home or self-care (01) | DRG 247 ==
LOC: D.ER 12:42 → D.CATH 12:42 → EDSTATUS 14:42 → D.M2 16:28 → D.CATH 16:29 → D.M2 16:30 → D.CLR 16:30
PROVIDERS: Emergency Medicine; ADMIT Internal Medicine Interventional Cardiology; ATTEND Internal Medicine Interventional Cardiology
PROC: 4A023N7 Measurement of Cardiac Sampling and Pressure, Left Heart, Percutaneous Approach (ICD-10-PCS; 2018-12-16)
PROC: B2111ZZ Fluoroscopy of Multiple Coronary Arteries using Low Osmolar Contrast (ICD-10-PCS; 2018-12-16)
PROC: B2151ZZ Fluoroscopy of Left Heart using Low Osmolar Contrast (ICD-10-PCS; 2018-12-16)
PROC: 027135Z Dilation of Coronary Artery, Two Arteries with Two Drug-eluting Intraluminal Devices, Percutaneous Approach (ICD-10-PCS; principal; 2018-12-16 15:18)
PROC: 027034Z Dilation of Coronary Artery, One Artery with Drug-eluting Intraluminal Device, Percutaneous Approach (ICD-10-PCS; 2018-12-17)
DX: I21.4 Non-ST elevation (NSTEMI) myocardial infarction (principal); I25.10 Atherosclerotic heart disease of native coronary artery without angina pectoris; I10 Essential (primary) hypertension; E78.5 Hyperlipidemia, unspecified; E11.9 Type 2 diabetes mellitus without complications